=== PATIENT | male | born 1980 | race Caucasian/White ===

== ENCOUNTER 2018-04-10 07:14 | Day surgery (SDC) | payer MEDICAID ==
[~2018-04-10 07:14] MED LIST: EPINEPHrine 1:1000 Nasal Sol(30mL) ONE; Lidocaine/Epinephrine 1% 1:100000 10 ML IJ ONE; Oxymetazoline 0.05% Nasal Spray (30 ml) NS ONE; ceFAZolin 1 gm in NS 1 GM/100 ML BAG IVPB ONE
[2018-04-10] MEDS ORDERED: Acetaminophen-Codeine 300/30 mg Tab PO PRN (08:43)
[2018-04-10] MEDS ORDERED: Dextrose 5%/0.45% NS 1,000 ML IV SCH (08:45)
[2018-04-10] MEDS ORDERED: Lactated Ringer's 1,000 ML IV ONE (09:05)
[2018-04-10] MEDS ORDERED: Midazolam 2 MG/2 ML VIAL ONE (09:08)
[2018-04-10] MEDS ORDERED: Succinylcholine Chloride 20 mg/ml Syr (5 ml) IV ONE (09:09)
[2018-04-10] MEDS ORDERED: Propofol 10 mg/ml Inj (20 ML) ONE ×2 (09:09→09:30)
[2018-04-10] MEDS ORDERED: Rocuronium 10 mg/ml (5 ml) ONE (10:25)
[2018-04-10] MEDS ORDERED: Neostigmine Methylsulfate 3mg/3ml Syringe IV ONE (10:26)
[2018-04-10] MEDS: HYDROmorphone 0.5 mg/0.5 ml ISec IVP PRN ×3 (10:35→11:16)
[2018-04-10 11:33] VITALS: TEMP 97
[2018-04-10 11:57] VITALS: BP 112/72; PULSE 68; RESP 18; O2SAT 100
--- NOTE | 2018-04-10 22:08 | OP ---
PROCEDURE DATE: 04/10/2018 PREOPERATIVE DIAGNOSIS: Deviated septum, large turbinates. POSTOPERATIVE DIAGNOSIS: Deviated septum, large turbinates. PROCEDURE: Septoplasty, bilateral inferior turbinate reduction, endoscopic. SURGEON: Isaac Anand MD DESCRIPTION OF PROCEDURE: The patient was brought into the room, placed in supine position and anesthesia was initiated through an ET tube. Adrenaline-soaked pledgets were inserted into nasal cavity, remained there for at least five minutes and removed. The patient was draped in the usual manner. Septum was injected with lidocaine with epinephrine on both sides. A [place] incision was made on the left and mucoperichondrial flap was raised. A vertical incision was made in the cartilage leaving 1.5 cm anterior superior strut and mucoperichondrial flap was raised on the other side. Deviated portion of the cartilage and bone were removed using forceps and chisel. Quilting suture was used to suture the two flaps together and close the [place] incision. A 0-degree scope was inserted into the nasal cavity. The inferior turbinates were noted to be enlarged and reduced in size using scissors going from inferior to superior, anterior posterior direction on both sides. Bleeding was controlled using suction cautery on both sides. Stents were placed. The patient was taken off anesthesia and taken to recovery room in stable manner. Isaac Anand MD
== END 2018-04-10 14:14 | disposition home or self-care (01) ==
LOC: C.SDS 07:14
PROVIDERS: ATTEND Otolaryngology
DX: J34.2 Deviated nasal septum (principal); J34.3 Hypertrophy of nasal turbinates
CPT/HCPCS: 30520; 30801; 88304; J0690; J1170; J2250; J2405; J2704; J2710; J3010; J7120